=== PATIENT | female | born 1995 | race Caucasian/White ===

== ENCOUNTER 2018-11-21 20:22 | Emergency (ER) | payer MEDICAID, SELFPAY ==
[2018-11-21 20:24] VITALS: BP 141/81; PULSE 88; RESP 16; TEMP 36.1; O2SAT 99; BMI 34.9
[2018-11-21] MEDS: 0.9% Normal Saline 1,000 ML 1000 ML IV (21:18)
--- NOTE | 2018-11-21 21:34 | ED.VISSUMM ---
- ER Visit Summary Date of Service: 11/21/18 Chief Complaint: Blood in stools History of Present Illness: The patient is a 23 F who presents with blood in stools that she noticed today. Patient states she had 2 bowel movements today and noticed blood within her stools. Patient describes as maroon stool with bright red blood on the toilet paper when she wipes. Patient states she has chronic abdominal pain and has been having this evaluated. Patient states that pain is not any worse than usual. Patient describes her pain is sharp and diffuse across her abdomen. Patient admits to nausea but denies any vomiting. Patient denies any dysuria or hematuria. Physical Examination: Vital signs are stable. Patient is afebrile. Patient is in no acute distress. Oral mucosa is pink and moist. Neck is supple. Trachea is midline. There is no JVD noted. Heart was regular rate and rhythm. Lungs are clear and equal bilateral. Abdomen is soft. Bowel sounds are normal. There is no tenderness. There is no guarding noted. Skin is warm dry. Cranial nerves II through XII are intact. There are no focal motor or sensory deficits noted. Test Results: CBC and comprehensive metabolic profile are within normal limits. Emergency Department Course and Treatment: Patient had no further pain here in the emergency department. Patient had no further bloody stools here in the emergency department. Patient was feeling better on reevaluation. Patient was advised to continue to monitor her stools. Patient was instructed to follow-up with her primary care physician in 5 to 7 days. Patient was advised that she may need to see a training and documentation specialist or general surgeon for colonoscopy if her bleeding persists. Patient understands and is agreeable with the plan. All questions were answered. Disposition: Discharge home Impression: Rectal bleeding This note was generated with [employer] dictation software. It may contain incorrect words, spelling, and punctuation that were not noted in review of the chart prior to signing ED Disposition - Plan for ED Patient: Disposition: Home or Assisted Living Diagnosis: Rectal bleeding Instructions: RECTAL BLEED, Stable Referrals: Town Doctor,Out of [NON-STAFF] - 3-5 Days
[2018-11-21 21:37] LABS: Absolute Lymphocyte Count 2.84 X10^3/uL (0.83-4.51); Absolute Neutrophil Count 4.4 X10^3/uL (2.0-7.7); Basophil# 0.05 X10^3/uL; Basophil% 0.6 % (0-1); Eosinophil# 0.21 X10^3/uL; Eosinophils% 2.6 % (0-5); Hematocrit 39.7 % (37-47); Hemoglobin 13.3 g/dL (12.0-15.0); Lymphocyte # 2.84 X10^3/ul (4.0); Lymphocyte % 35.1 % (19-41); Mean Corp Hgb Conc 33.5 g/dL (32-36); Mean Corpuscular Hgb 30.4 pg (27.0-32.0); Mean Corpuscular Volume 90.6 fL (81-99); Mean Platelet Vol. 9.4 fl (6.2-12.0); Monocyte# 0.61 X10^3/uL; Monocyte% 7.5 % (0-10); NRBC Flagged by Analyzer 0 % (0-5); Neutrophil # 4.35 X10^3/uL (2.7-7.7); Platelet Count 277 K/mm3 (150-450); RBC Distribution Width SD 40.1 fl (35.1-43.9); Red Blood Count 4.38 M/mm3 (4.2-5.4); White Blood Count 8.1 K/mm3 (4.4-11.0)
[2018-11-21 21:42] LABS: Anion Gap 4 (5-15); BUN 11 mg/dL (7-18); BUN/Creat Ratio 18.6 RATIO (10-20); Calcium,Total 8.9 mg/dL (8.5-10.1); Chloride 106 mmol/L (98-107); Creatinine, Serum 0.59 mg/dL (0.55-1.02); EST Glomerular Filtration Rate 137 mL/min (>60); Est Glom Filt Rate - Afr Amer 165 mL/min (>60); Estimated Creatinine Clearance 152.15 ml/min; Glucose 85 mg/dL (74-106); Potassium 3.6 mmol/L (3.5-5.1); Sodium Level 139 mmol/L (136-145)
[2018-11-21 21:43] LABS: Internal QC Validated? YES +Cl - CLEAR BKGD; Pregnancy, Serum, hCG Quali. NEGATIVE Negative
[2018-11-21 22:49] VITALS: RESP 16
== END 2018-11-21 22:49 | disposition home or self-care (01) ==
PROVIDERS: Emergency Provider Emergency Medicine
DX: K92.1 Melena (principal); E66.9 Obesity, unspecified; Z68.34 Body mass index [BMI] 34.0-34.9, adult
CPT/HCPCS: 80048; 84703; 85025; 96360; 99283; J7030; A4216